=== PATIENT | female | born 1960 | race Caucasian/White ===

== ENCOUNTER → 2020-03-14 15:05 | Outpatient (CLI) | payer BC, SELFPAY ==
--- NOTE | ~2020-03-14 | MM_ITS ---
EXAMINATION: MM screening [facility] BI w irving HISTORY: Screening mammogram, family history of breast cancer in her sister. TECHNIQUE: Craniocaudal and mediolateral oblique 3-D tomosynthesis images were obtained and synthetic 2-D images were generated. CAD analysis was submitted and interpreted. COMPARISON: 02/11/2019, 12/25/2017, 11/10/2016 BREAST PARENCHYMAL COMPOSITION: There are scattered areas of fibroglandular density. FINDINGS: RIGHT BREAST: There is no evidence of suspicious mass, calcification, or architectural distortion to suggest malignancy. There has been no significant interval change. LEFT BREAST: An asymmetry is present in the posterior third of the far outer breast on the exaggerate d lateral left craniocaudal view. IMPRESSION: 1. Left breast asymmetry. 2. Additional mammographic views and possible breast ultrasound are recommended. BI-RADS Category 0: Incomplete: Needs additional imaging evaluation. Reviewed, dictated and finalized at location A. LOT MANAGER IMPRESSION: 1. Left breast asymmetry. 2. Additional mammographic views and possible breast ultrasound are recommended . BI-RADS Category 0: Incomplete: Needs additional imaging evaluation.
== END ==
PROVIDERS: PCP Physician Assistant; Visit Provider Obstetrics & Gynecology
DX: Z12.31 Encounter for screening mammogram for malignant neoplasm of breast (principal); R92.8 Other abnormal and inconclusive findings on diagnostic imaging of breast
CPT/HCPCS: 77063; 77067

== ENCOUNTER → 2020-04-05 09:32 | Outpatient (CLI) | payer BC, SELFPAY ==
--- NOTE | ~2020-04-05 | MMUS_ITS ---
EXAMINATION: MM diagnostic mammo unilat LT, US breast LT limited HISTORY: Left breast asymmetry on screening mammogram TECHNIQUE: Additional 3-D tomosynthesis images of the left breast were performed and synthetic 2-D im ages were generated. CAD analysis was submitted and interpreted. High resolution limited left breast ultrasound was performed. COMPARISON: 03/14/2020, 02/11/2019, 12/25/2017 FINDINGS: MAMMOGRAPHIC FINDINGS: There is a return to baseline fibroglandular appearance with spot compression of the left breast. No suspicious mass, calcification, or architectural distortion are identified. ULTRASOUND: There is no evidence of focal abnormal solid or cystic lesion in the vicinity of the mammographic fin ding in question. A small cyst is present at the 3:00 location 4 cm from the nipple. IMPRESSION: 1. No mammographic or sonographic evidence of malignancy. 2. Recommend routine screening mammography in one year. BI-RADS Category 1: Negative Reviewed, dictated and finalized at location A. RATURE PROFESSOR IMPRESSION: 1. No mammographic or sonographic evidence of malignancy. 2. Recommend routine screening mammography in one year. BI-RADS Category 1: Negative
== END ==
PROVIDERS: PCP Physician Assistant; Visit Provider Obstetrics & Gynecology
DX: R92.8 Other abnormal and inconclusive findings on diagnostic imaging of breast (principal)
CPT/HCPCS: 76642; 77065

== ENCOUNTER → 2020-05-18 17:54 | Outpatient (CLI) | payer BC, SELFPAY ==
--- NOTE | ~2020-05-18 | DEXA_ITS ---
Bone Density Report Name: Erica Suarez Age: 59 Sex: Female Ethnicity: White Date of : 1960 Indication: postmenopausal; screening for osteoporosis; hysterectomy; Referring Provider: Keeley, Awa Study: Bone densitometry was performed. Exam Date: May 18, 2020 Accession number: [id number] Bone Density: Region BMD T-score Z-score Classification AP Spine (L1-L4) 0.895 -1.4 0.0 Osteopenia Femoral Neck (Left) 0.767 -0.7 0.5 Normal Total Hip (Left) 0.812 -1.1 -0.1 Osteopenia Femoral Neck (Right) 0.755 -0.8 0.4 Normal Total Hip (Right) 0.807 -1.1 -0.2 Osteopenia Total Hip Mean 0.810 -1.1 -0.2 Osteopenia World Health Organization criteria for BMD impression classify patients as: Normal (T-score at or above -1.0), Osteopenia (T-score between -1.0 and -2.5), or Osteoporosis (T-score at or below -2.5). 10-year Fracture Risk(1): Major Osteoporotic Fracture 6.9% Hip Fracture 0.3% Reported Risk Factors: [place] (), Neck BMD=0.755, BMI=26.2 (1) FRAX(R) Version 3.08. Fracture probability calculated for an untreated patient. Fracture probability may be lower if the patient has received treatment. Previous Exams: Region Exam Age BMD T-score BMD Change BMD Change Date g/cm2 vs Baseline vs Previous AP Spine(L1-L4) 05/18/2020 59 0.895 -1.4 -0.173* -0.044* 12/25/2017 57 0.939 -1.0 -0.129* -0.129* 05/21/2011 50 1.068 0.2 Total Hip(Left) 05/18/2020 59 0.812 -1.1 -0.063* -0.014 12/25/2017 57 0.826 -0.9 -0.049* -0.049* 05/21/2011 50 0.875 -0.5 Total Hip(Right) 05/18/2020 59 0.807 -1.1 -0.106* -0.009 12/25/2017 57 0.816 -1.0 -0.097* -0.097* 05/21/2011 50 0.912 -0.2 *Denotes significance at 95% confidence level, LSC for AP Spine = 0.022 g/cm2, LSC for Total Hip = 0.027 g/cm2 Clinical Information Provided by Patient: Has the following medical conditions: Hysterectomy Patient maximum height was 64.0 Menopause Age: 50 No regular weight bearing exercise Drinks caffeinated beverages Onset of menses at age 13 Number of children 3 Impression: The patient has low bone mass, based on the Total Spine T-score. The patient has an estimated ten-year risk of hip fracture of 0.3% and an estimated ten-year risk of major fracture of 6.9%, based on the WHO FRAX algorithm. The BMD for the AP Spine(L1-L4) decreased,
== END ==
PROVIDERS: PCP Physician Assistant; Visit Provider Physician Assistant
DX: Z78.0 Asymptomatic menopausal state (principal); M85.88 Other specified disorders of bone density and structure, other site; M85.852 Other specified disorders of bone density and structure, left thigh; M85.851 Other specified disorders of bone density and structure, right thigh
CPT/HCPCS: 77080

== ENCOUNTER → 2021-05-27 18:05 | Outpatient (CLI) | payer BC, SELFPAY ==
--- NOTE | ~2021-05-27 | MM_ITS ---
EXAMINATION: MM screening maral BI w irving HISTORY: Screening mammogram TECHNIQUE: Craniocaudal and mediolateral oblique 3-D tomosynthesis images were obtained and synthetic 2-D images were generated. Bilateral rotated lateral CC views. CAD analysis was submitted and interp reted. COMPARISON: April 05, 2020 diagnostic left mammogram and limited left breast ultrasound examinatio n March 14, 2020, February 11, 2019 bilateral screening mammogram examinations.. BREAST PARENCHYMAL COMPOSITION: There are scattered areas of fibroglandular density. FINDINGS: There is no evidence of suspicious mass, calcification, or architectural distortion to sugg est malignancy in either breast. There has been no suspicious interval change. IMPRESSION: 1. No mammographic evidence of malignancy. 2. Recommend routine screening mammography in one year. BI-RADS Category 1: Negative Reviewed, dictated and finalized at location A.
== END ==
PROVIDERS: PCP Physician Assistant; Visit Provider Obstetrics & Gynecology
DX: Z12.31 Encounter for screening mammogram for malignant neoplasm of breast (principal)
CPT/HCPCS: 77063; 77067

== ENCOUNTER 2021-06-14 01:08 | Day surgery (SDC) | payer BC, SELFPAY ==
[2021-05-29 12:24] VITALS: BMI 27.2
--- NOTE | 2021-06-13 12:52 | PM.HPGS ---
History of Present Illness History of Present Illness Consent: Risks, benefits, and alternatives have been discussed and questions answered. Patient agrees to proceed with procedure. Chief complaint: neoplasm screening, family hx of colon ca Narrative: Erica Suarez is a 60 year old female Referred for colon cancer screening. Her father had colon cancer. Review of Systems Review of Systems: All systems reviewed & are unremarkable except as noted in HPI and below PMFSH Past Medical History Medical History Abnormal colonoscopy internal/external hemorrhoids; diverticulosis//3-5 yrs (dad had colon cancer) Healthy adult Hot flashes Urinary incontinence leakage, frequency w/scanty output Surgical History Surgical History H/O: hysterectomy (~02/09/03) Vaginal hysterectomy/no BSO with cystotomy - uterine prolapse/bladder adhesions History of History of tonsillectomy History of uterine suspension procedure S/P tubal ligation (~1992) Family History Family History Mother Heart disease Hypothyroid Hypertension Arteriosclerotic vascular disease Diabetes mellitus Father Carcinoma of colon Sibling Breast cancer Social History Social History Smoking packs per day: 0.5 Smoking cigarettes per day: 10.0 Years smoked: 3 Smoking pack-years: 1.50 Smoking status: Former smoker Tobacco type: cigarettes Alcohol intake: current Drinks per week: 10 Alcohol use details: socially Substance use: never Substance use type: does not use Living arrangements: with family Additional occupation/education comments: sales Gender identity (if verbalized by the patient): Female Sexual Orientation (if Verbalized by the Patient): Straight or Heterosexual Spiritual care concerns: No Meds Home Medications and Allergies Home Medications Medication Instructions Recorded Confirmed Type Calcium Magnesium 1 tablet PO 3XW 12/30/18 06/14/21 History ascorbic acid (vitamin C) 1,000 mg PO 3XW 12/30/18 06/14/21 History [id number] 3-fat com #1 1 cap PO DAILY 05/29/21 06/14/21 History [Pre-Brianne Multivitamins/Minerals] Allergies Allergy/AdvReac Type Severity Reaction Status Date / Time amoxicillin AdvReac Intermediate Hives Verified 06/14/21 11:20 meperidine AdvReac Mild NAUSEA Verified 06/14/21 11:20 Exam Resp: Auscultation: clear to auscultation bilaterally Cardio: Rate: regular rate Rhythm: regular rhythm GI: GI Palp: Yes Soft to palpation and No Tenderness to palpation present (GI) Assessment and Plan Assessment and plan (1) Colon cancer screening: Code(s): Z12.11 - Encounter for screening for malignant neoplasm of colon Status: Acute Assessment and Plan: Colonoscopy with possible biopsy or polypectomy or cautery or injection of substances.
[2021-06-14 11:21] VITALS: BP 123/87; PULSE 96; RESP 19; TEMP 36.7; O2SAT 96
[2021-06-14] MEDS: LACTATED RINGERS 1,000 ML 150 ML IV CONT (11:33)
--- NOTE | 2021-06-14 12:15 | WPDANESEPPF ---
Anes - Initial Pre Proc Eval Procedure: Operation Date: 06/14/21 12:30 Proposed Procedures p Screening Colonoscopy - Saravanan Easton MD Date/Time: 06/14/21 12:15 Surgeon: Saravanan Easton MD Pre Op Diagnosis: neoplasm screening, family hx of colon ca Patient Data Age: 60 Gender: F Height: 1.63 m Weight: 73.7 kg Last Vital Signs Temp 36.7 C 06/14/21 11:21 Pulse 96 06/14/21 11:21 Resp 19 06/14/21 11:21 BP 123/87 06/14/21 11:21 Pulse Ox 96 06/14/21 11:21 Allergies Allergy/AdvReac Type Severity Reaction Status Date / Time amoxicillin AdvReac Intermediate Hives Verified 06/14/21 11:20 meperidine AdvReac Mild NAUSEA Verified 06/14/21 11:20 Home Medications Medication Instructions Recorded Confirmed Type Calcium Magnesium 1 tablet PO 3XW 12/30/18 06/14/21 History ascorbic acid (vitamin C) 1,000 mg PO 3XW 12/30/18 06/14/21 History [id number] 3-fat com #1 1 cap PO DAILY 05/29/21 06/14/21 History [Pre-Brianne Multivitamins/Minerals] Patient hx anesthesia problems: none Family hx anesthesia problems: none Results Review: All pre-operative results and documents have been reviewed as part of the pre-operative evaluation. [facility] Past Medical History Medical History Abnormal colonoscopy internal/external hemorrhoids; diverticulosis//3-5 yrs (dad had colon cancer) Healthy adult Hot flashes Urinary incontinence leakage, frequency w/scanty output Surgical History Surgical History H/O: hysterectomy (~02/09/03) Vaginal hysterectomy/no BSO with cystotomy - uterine prolapse/bladder adhesions History of History of tonsillectomy History of uterine suspension procedure S/P tubal ligation (~1992) Family History Family History Mother Heart disease Hypothyroid Hypertension Arteriosclerotic vascular disease Diabetes mellitus Father Carcinoma of colon Sibling Breast cancer Social History Social History Smoking packs per day: 0.5 Smoking cigarettes per day: 10.0 Years smoked: 3 Smoking pack-years: 1.50 Smoking status: Former smoker Tobacco type: cigarettes Alcohol intake: current Drinks per week: 10 Alcohol use details: socially Substance use: never Substance use type: does not use Living arrangements: with family Additional occupation/education comments: sales Gender identity (if verbalized by the patient): Female Sexual Orientation (if Verbalized by the Patient): Straight or Heterosexual Spiritual care concerns: No Anes - Eval Final PreProcedure Day of Procedure 06/14/21 12:15 Patient weight: overweight Heart: regular rate and rhythm Lungs: clear to auscultation Airway: Mallampati scale class II Neurological: alert and oriented Last oral intake: >/= 8 hours ASA classification: II Emergent: no Anesthetic plan: proceed Anesthesia type and monitoring: general GIVS and standard monitoring Results Review: All pre-operative results and documents have been reviewed as part of the pre-operative evaluation. Informed Consent: The patient's anesthetic plan and its attendant risks and benefits were discussed with the patient/family/POA. Questions were solicited and answers provided to the satisfaction of the patient/family/POA.
[2021-06-14 12:36] VITALS: BP 110/72; PULSE 83; RESP 15; O2SAT 100
[2021-06-14 12:46] VITALS: BP 133/75; PULSE 84; RESP 19; O2SAT 100
[2021-06-14 12:56] VITALS: BP 141/101; PULSE 79; RESP 19; O2SAT 100
[2021-06-14 13:03] VITALS: BP 133/94; PULSE 78; RESP 20; O2SAT 100
== END 2021-06-14 13:08 | disposition home or self-care (01) ==
PROVIDERS: PCP Physician Assistant; Visit Provider Internal Medicine Gastroenterology
PROC: 0DJD8ZZ Inspection of Lower Intestinal Tract, Via Natural or Artificial Opening Endoscopic (ICD-10-PCS; CPT 45378; principal; 2021-06-14 12:30)
DX: Z12.11 Encounter for screening for malignant neoplasm of colon (principal); K63.5 Polyp of colon; K57.30 Diverticulosis of large intestine without perforation or abscess without bleeding; Z80.0 Family history of malignant neoplasm of digestive organs; Z87.891 Personal history of nicotine dependence
CPT/HCPCS: 45380; 88305; J2704; J7120

== ENCOUNTER → 2022-09-17 13:50 | Outpatient (CLI) | payer BC, SELFPAY ==
--- NOTE | ~2022-09-17 | MM_ITS ---
EXAMINATION: MM screening [facility] BI w irving HISTORY: Screening mammogram TECHNIQUE: Craniocaudal and mediolateral oblique 3-D tomosynthesis images were obtained and synthetic 2-D images were generated. CAD analysis was submitted and interpreted. COMPARISON: 05/27/2021, 04/05/2020, 03/14/2020, 02/11/2019 BREAST PARENCHYMAL COMPOSITION: There are scattered areas of fibroglandular density. FINDINGS: No suspicious mass, calcification, or architectural distortion are identified in either yaquelin ast to suggest malignancy. There has been no suspicious interval change. IMPRESSION: 1. No mammographic evidence of malignancy. 2. Recommend routine screening mammography in one year. BI-RADS Category 1: Negative Reviewed, dictated and finalized at location A.
== END ==
PROVIDERS: PCP Physician Assistant; Visit Provider Obstetrics & Gynecology
DX: Z12.31 Encounter for screening mammogram for malignant neoplasm of breast (principal)
CPT/HCPCS: 77063; 77067

== ENCOUNTER → 2023-03-25 09:05 | Outpatient (CLI) | payer BC, SELFPAY ==
--- NOTE | ~2023-03-25 | DEXA_ITS ---
Bone Density Report Name: UCHE LARSON Age: 62 Sex: Female Ethnicity: White Date of : 1960 Indication: osteopenia; hysterectomy; Referring Provider: RIC, ASHLEY Study: Bone densitometry was performed. Exam Date: March 25, 2023 Accession number: [id number] Bone Density: Region BMD T-score Z-score Classification AP Spine (L1-L4) 0.837 -1.9 -0.3 Osteopenia Femoral Neck (Left) 0.760 -0.8 0.6 Normal Total Hip (Left) 0.776 -1.4 -0.3 Osteopenia Femoral Neck (Right) 0.774 -0.7 0.7 Normal Total Hip (Right) 0.793 -1.2 -0.1 Osteopenia Total Hip Mean 0.785 -1.3 -0.2 Osteopenia World Health Organization criteria for BMD impression classify patients as: Normal (T-score at or above -1.0), Osteopenia (T-score between -1.0 and -2.5), or Osteoporosis (T-score at or below -2.5). 10-year Fracture Risk(1): Major Osteoporotic Fracture 7.2% Hip Fracture 0.4% Reported Risk Factors: [place] (), Neck BMD=0.760, BMI=28.7 (1) FRAX(R) Version 3.08. Fracture probability calculated for an untreated patient. Fracture probability may be lower if the patient has received treatment. Previous Exams: Region Exam Age BMD T-score BMD Change BMD Change Date g/cm2 vs Baseline vs Previous AP Spine(L1-L4) 03/25/2023 62 0.837 -1.9 -0.231* -0.059* 05/18/2020 59 0.895 -1.4 -0.173* -0.044* 12/25/2017 57 0.939 -1.0 -0.129* -0.129* 05/21/2011 50 1.068 0.2 Total Hip(Left) 03/25/2023 62 0.776 -1.4 -0.099* -0.035* 05/18/2020 59 0.812 -1.1 -0.063* -0.014 12/25/2017 57 0.826 -0.9 -0.049* -0.049* 05/21/2011 50 0.875 -0.5 Total Hip(Right) 03/25/2023 62 0.793 -1.2 -0.119* -0.013 05/18/2020 59 0.807 -1.1 -0.106* -0.009 12/25/2017 57 0.816 -1.0 -0.097* -0.097* 05/21/2011 50 0.912 -0.2 *Denotes significance at 95% confidence level, LSC for AP Spine = 0.022 g/cm2, LSC for Total Hip = 0.027 g/cm2 Clinical Information Provided by Patient: Has the following medical conditions: Hysterectomy Patient maximum height was 63.5 Menopause Age: 43 No regular weight bearing exercise Drinks caffeinated beverages Onset of menses at age 13 Number of children 3 Impression: The patient has low bone mass, based on the Total Spine T-score. The patient has an estimated ten-year
== END ==
PROVIDERS: PCP Physician Assistant; Visit Provider Physician Assistant
DX: Z13.820 Encounter for screening for osteoporosis (principal); M85.88 Other specified disorders of bone density and structure, other site; M85.852 Other specified disorders of bone density and structure, left thigh; M85.851 Other specified disorders of bone density and structure, right thigh
CPT/HCPCS: 77080

== ENCOUNTER 2024-03-23 15:55 | Outpatient (CLI) | payer BC, SELFPAY ==
--- NOTE | ~2024-03-23 | MM_ITS ---
EXAMINATION: MM screening maral BI w irving HISTORY: Screening TECHNIQUE: Craniocaudal and mediolateral oblique 3-D tomosynthesis images were obtained and synthetic 2-D images were generated. CAD analysis was submitted and interpreted. COMPARISON: Comparison to multiple prior studies sequentially, with oldest reviewed study dated 12/10. BREAST PARENCHYMAL COMPOSITION: Not dense: There are scattered areas of fibroglandular density. FINDINGS: There is no evidence of suspicious mass, calcification, or architectural distortion to sugg est malignancy in either breast. There has been no suspicious interval change. IMPRESSION: 1. No mammographic evidence of malignancy. 2. Recommend routine screening mammography in one year. BI-RADS Category 1: Negative Reviewed, dictated and finalized at location B. RNING OFFICER
== END 2024-03-23 15:56 | disposition home or self-care (01) ==
LOC: MICIMG 15:56
PROVIDERS: PCP Physician Assistant; Visit Provider Obstetrics & Gynecology
DX: Z12.31 Encounter for screening mammogram for malignant neoplasm of breast (principal)
CPT/HCPCS: 77063; 77067